=== PATIENT | male | born 1960 | race Caucasian/White ===

== ENCOUNTER 2021-11-19 05:30 | Inpatient (IN) | payer OTHER ==
[2021-11-15 12:41] LABS: BILIRUBIN,URINE NEGATIVE (NEGATIVE); BLOOD, URINE NEGATIVE (NEGATIVE); CLARITY/URINE CLEAR (CLEAR); COLOR,URINE YELLOW (YELLOW); GLUCOSE,URINE NEGATIVE (NEGATIVE); KETONES,URINE NEGATIVE (NEGATIVE); LEUKOCYTE ESTERASE ,URINE NEGATIVE (NEGATIVE); NITRITE, URINE NEGATIVE (NEGATIVE); PH,URINE 5.5 (5.0-8.0); PROTEIN URINE NEGATIVE (NEGATIVE); UROBILINOGEN,URINE 0.2 (0.2-1.0)
[2021-11-15 12:44] LABS: BASOPHILS % (AUTO) 0.4 % (0.0-2.0); EOSINOPHILS # (AUTO) 0.1 K/uL (0.0-0.4); EOSINOPHILS % (AUTO) 1.1 % (0.0-4.0); HEMATOCRIT 44.6 % (36-54); LYMPHOCYTES # (AUTO) 2.3 K/uL (1.0-5.5); LYMPHOCYTES % (AUTO) 27.1 % (20.5-51.5); MEAN CORPUSCULAR VOLUME 92 fL (79.0-98.0); MONOCYTES # (AUTO) 0.6 K/uL (0.0-1.0); MONOCYTES % (AUTO) 6.9 % (1.7-9.3); NEUTROPHILS # (AUTO) 5.4 K/uL (1.8-7.7); NEUTROPHILS % (AUTO) 64.5 % (40.0-70.0); PLATELET COUNT (AUTO) 266 K/uL (130-430); RED BLOOD CELL COUNT(AUTO) 4.85 MIL/uL (4.2-6.2); RED CELL DISTRIBUTION WIDTH 14.6 % (9.0-15.0); WHITE BLOOD COUNT (AUTO) 8.4 K/uL (4.8-10.8)
[2021-11-15 12:59] LABS: ALBUMIN 3.5 g/dL (3.4-4.8); CREATININE 1.17 mg/dL (0.55-1.30); POTASSIUM 4.9 mmol/L (3.5-5.1); TOTAL BILIRUBIN 0.7 mg/dL (0.0-1.0)
[2021-11-15 13:13] LABS: PROTHROMBIN TIME 10.4 SECS (9.5-12.5)
[~2021-11-19] VITALS: Ht 177.8 cm; Wt 115.7 kg
[2021-11-19] MEDS ORDERED: BUPIVACAINE LIPOSOME/PF 266 MG/20 ML VIAL INFIL ONE (07:48)
[2021-11-19] MEDS ORDERED: APIX5TAB PO (07:48)
[2021-11-19] MEDS ORDERED: LISI-209 PO (07:49)
[2021-11-19] MEDS ORDERED: COR25 PO (07:50)
[2021-11-19] MEDS ORDERED: ASPI-859 PO (07:53)
[2021-11-19] MEDS ORDERED: EZET10TA30 PO (07:54)
[2021-11-19] MEDS ORDERED: ONDANSETRON HCL 4 MG/2 ML VIAL IVP ONE (08:12)
[2021-11-19] MEDS ORDERED: ePHEDrine sulfate 50 MG/ML VIAL IVP ONE (08:12)
[2021-11-19] MEDS ORDERED: LIDOCAINE 1% 10 MG/ML, 20 ML MDV INJ ONE (08:12)
[2021-11-19] MEDS ORDERED: CEFAZOLIN 2 GM IVPB PREMIX 50 ML IV ONE (08:12)
[2021-11-19] MEDS ORDERED: BUPIVACAINE /DEX PF 0.75% SPINAL 2 ML AMP INJ ONE (08:12)
[2021-11-19] MEDS ORDERED: PROPOFOL 200MG/ 20ML VIAL (DIPRIVAN) IV ONE (08:12)
[2021-11-19] MEDS ORDERED: LR 1,000 ML IV.SOLN IV ONE (08:12)
[2021-11-19] MEDS ORDERED: MORPHINE SULFATE 10MG/10ML PF AMP EP ONE (08:12)
[2021-11-19] MEDS ORDERED: WATER FOR IRRIGATION,STERILE 1,000 ML IRRIG.SOLN IR ONE (08:12)
[2021-11-19] MEDS ORDERED: MIDAZOLAM HCL 5 MG/5 ML VIAL IVP ONE (08:12)
[2021-11-19] MEDS ORDERED: KETOROLAC TROMETHAMINE 30 MG VIAL IVP ONE (08:12)
[2021-11-19] MEDS ORDERED: NS 1000 ML IV.SOLN IV ONE (08:12)
[2021-11-19] MEDS ORDERED: MEPERIDINE HCL/PF 25 MG/ML DISP.SYRIN IVP PRN (09:15)
[2021-11-19] MEDS ORDERED: MIDAZOLAM HCL 2 MG/2 ML VIAL (VERSED) IVP PRN (09:15)
[2021-11-19] MEDS ORDERED: NALOXONE HCL 0.4 MG/ML AMP (NARCAN) IVP PRN ×4 (09:15→11:00)
[2021-11-19] MEDS ORDERED: METOCLOPRAMIDE HCL 10 MG/2 ML VIAL IVP PRN ×2 (09:15→11:00)
[2021-11-19] MEDS ORDERED: DIPHENHYDRAMINE INJ 50 MG/ML VIAL IVP PRN (09:15)
[2021-11-19] MEDS ORDERED: LR 1,000 ML IV SCH (09:15)
[2021-11-19] MEDS ORDERED: HYDROmorphone 1 MG/ML INJ. CARTRIDGE IVP PRN ×5 (09:15→11:00)
[2021-11-19] MEDS ORDERED: LABETALOL 100 MG/ 20ML VIAL IVP PRN (09:15)
[2021-11-19] MEDS ORDERED: ONDANSETRON HCL 4 MG/2 ML VIAL IVP PRN ×2 (09:15→11:45)
[2021-11-19] MEDS ORDERED: ACETAMINOPHEN I.V. 1000 MG 100 ML IV ONE (09:22)
[2021-11-19] MEDS ORDERED: LACTULOSE 20 GM/30 ML UDC PO PRN (11:00)
[2021-11-19] MEDS ORDERED: oxyCODONE HCL 5 MG TABLET PO PRN ×2 (11:00)
[2021-11-19] MEDS ORDERED: LORATADINE 10 MG TABLET PO PRN (11:00)
[2021-11-19] MEDS ORDERED: BISACODYL 10 MG/SUPPOSITORY RC PRN (11:00)
[2021-11-19] MEDS ORDERED: traMADol HCL HCL 50 MG TABLET (ULTRAM) PO PRN (11:00)
[2021-11-19] MEDS ORDERED: DIPHENHYDRAMINE HCL 25 MG CAPSULE PO PRN (11:00)
[2021-11-19 12:06] VITALS: BP_SYST 102
[2021-11-19 13:00] VITALS: BP_SYST 132
[2021-11-19 16:34] VITALS: BP_SYST 122
[2021-11-19] MEDS: ACETAMINOPHEN 500 MG TABLET PO SCH ×2 (17:09→22:00)
[2021-11-19] MEDS: KETOROLAC TROMETHAMINE 10 MG TABLET (TORADOL) PO SCH ×2 (17:10→22:00)
[2021-11-19] MEDS: ceFAZolin SODIUM 2 GM in D5W 50 ML IV SCH ×2 (17:14→21:41)
[2021-11-19 20:00] VITALS: BP_SYST 110
[2021-11-19] MEDS: SENNOSIDES/DOCUSATE SODIUM 1 TAB TABLET(SENOKOT-S) PO SCH (21:07)
[2021-11-20] VITALS: BP_SYST 112
[2021-11-20 04:00] VITALS: BP_SYST 106
[2021-11-20] MEDS: KETOROLAC TROMETHAMINE 10 MG TABLET (TORADOL) PO SCH (06:26)
[2021-11-20] MEDS: ceFAZolin SODIUM 2 GM in D5W 50 ML IV SCH (06:29)
[2021-11-20 07:20] LABS: BASOPHILS % (AUTO) 0.2 % (0.0-2.0); HEMATOCRIT 38.8 % (36-54); LYMPHOCYTES # (AUTO) 0.9 K/uL (1.0-5.5); LYMPHOCYTES % (AUTO) 7.8 % (20.5-51.5); MEAN CORPUSCULAR VOLUME 93 fL (79.0-98.0); MONOCYTES # (AUTO) 0.8 K/uL (0.0-1.0); MONOCYTES % (AUTO) 6.9 % (1.7-9.3); NEUTROPHILS # (AUTO) 9.9 K/uL (1.8-7.7); NEUTROPHILS % (AUTO) 85.1 % (40.0-70.0); PLATELET COUNT (AUTO) 218 K/uL (130-430); RED CELL DISTRIBUTION WIDTH 14.9 % (9.0-15.0); WHITE BLOOD COUNT (AUTO) 11.7 K/uL (4.8-10.8)
[2021-11-20] MEDS ORDERED: OXYIR5 PO (07:48)
[2021-11-20 08:05] LABS: CALCIUM 8.5 mg/dL (8.4-11.0); CREATININE 1.16 mg/dL (0.55-1.30); POTASSIUM 4.1 mmol/L (3.5-5.1); TOTAL BILIRUBIN 0.5 mg/dL (0.0-1.0)
[2021-11-20 08:11] VITALS: BP_SYST 124
[2021-11-20] MEDS: SENNOSIDES/DOCUSATE SODIUM 1 TAB TABLET(SENOKOT-S) PO SCH (08:42)
[2021-11-20] MEDS ORDERED: EZETIMIBE 10 MG TABLET PO ONE (09:00)
[2021-11-20] MEDS ORDERED: lisinopriL 5 MG TABLET PO ONE (09:00)
[2021-11-20] MEDS ORDERED: CARVEDILOL 25 MG TABLET (COREG) PO ONE (09:00)
[2021-11-20] MEDS ORDERED: APIXABAN 2.5 MG TABLET PO SCH (09:00)
[2021-11-20] MEDS ORDERED: DECADRON 4 MG TABLET PO SCH (09:00)
[2021-11-20] MEDS ORDERED: CELECOXIB 200 MG CAPSULE PO SCH (11:00)
[2021-11-20 12:18] VITALS: BP_SYST 94
[2021-11-20 12:56] VITALS: BP_SYST 94
[2021-11-20] MEDS ORDERED: CARVEDILOL 25 MG TABLET (COREG) PO SCH (21:00)
[2021-11-21] MEDS ORDERED: EZETIMIBE 10 MG TABLET PO SCH (09:00)
[2021-11-21] MEDS ORDERED: lisinopriL 5 MG TABLET PO SCH (09:00)
== END 2021-11-20 13:25 | disposition home health service (06) | DRG 470 ==
LOC: SMU 05:30 → STU 10:39
PROVIDERS: ADMIT Student in an Organized Health Care Education/Training Program; ATTEND Student in an Organized Health Care Education/Training Program
PROC: 0SRC0J9 Replacement of Right Knee Joint with Synthetic Substitute, Cemented, Open Approach (ICD-10-PCS; principal; 2021-11-19 08:25)
DX: M17.11 Unilateral primary osteoarthritis, right knee (principal); Z20.822 Contact with and (suspected) exposure to COVID-19
CPT/HCPCS: 36415; 71046-TC; 73560-TC; 80053; 81003; 85025; 85610-TC; 85730-TC; 87081; 88305; 88311; 93005; 96379; 97110-GP; 97116-GP; 97530-GP; C1713; C1776; C9290; G0378; J0131; J0690; J1885; J2001; J2250; J2274; J2405; J2704; J3490; J7030; J7060; J7120; J8540; U0003